=== PATIENT | male | born 1990 | race African-American/Black ===

== ENCOUNTER 2020-09-17 20:28 | Emergency (ER) | payer SELFPAY ==
[~2020-09-17] VITALS: Ht 182.9 cm; Wt 54.0 kg
[2020-09-17 21:17] VITALS: BP 100/51
== END 2020-09-17 23:32 | disposition left against medical advice (07) ==
LOC: ER 21:14
DX: Z53.21 Procedure and treatment not carried out due to patient leaving prior to being seen by health care provider (principal)